=== PATIENT | male | born 1950 | race Caucasian/White ===

== ENCOUNTER 2016-11-03 20:32 | Emergency (ER) | payer OTHER, MEDICARE ==
[~2016-11-03] VITALS: Ht 188 cm; Wt 115.0 kg
[~2016-11-03 20:32] MED LIST: AMMO12CR10 TOP; ASPI81TA17 PO; B-122000 PO; CALC500T42 PO; DEPA500T3 PO; DIOV80TA4 PO; FLEX10TA PO; GABA600T PO; GLIP5TAB8 PO; IMIQ5CRE9; LEVA750T PO; MIRT15TA2 PO; MOBI7.5T PO; NIAC500T5 PO; REST0.05 EACH EYE; REST0.05 OU; SIMV40TA PO; TAB-TAB PO; TOPA200T4 PO; ULTR50TA PO
[2016-11-03 20:35] VITALS: BP 138/87; PULSE 112; RESP 16; TEMP 97.7; O2SAT 97
[2016-11-03] MEDS ORDERED: SIMV80TA PO (21:02)
[2016-11-03] MEDS ORDERED: LISI-519 PO (21:02)
[2016-11-03] MEDS ORDERED: TRAZ100T4 PO (21:02)
[2016-11-03] MEDS ORDERED: MELO7.5T4 PO (21:02)
[2016-11-03] MEDS ORDERED: GABA600T PO (21:02)
[2016-11-03] MEDS ORDERED: DIVA500T PO (21:02)
[2016-11-03] MEDS ORDERED: ASPI81CH7 CHEW (21:02)
[2016-11-03] MEDS ORDERED: ASCO10003 PO (21:02)
[2016-11-03] MEDS ORDERED: FOLI5CAP PO (21:02)
[2016-11-03] MEDS ORDERED: REST0.05 EACH EYE (21:02)
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
[2016-11-03 22:17] VITALS: BP 142/88
[2017-03-11] MEDS ORDERED: TRAZ50TA12 PO (11:48)
[2017-03-11] MEDS ORDERED: ASCO500T PO (11:48)
== END 2016-11-03 22:18 | disposition home or self-care (01) ==
LOC: PHED 20:32
DX: S00.81XA Abrasion of other part of head, initial encounter (principal); S80.812A Abrasion, left lower leg, initial encounter; S80.11XA Contusion of right lower leg, initial encounter; S40.022A Contusion of left upper arm, initial encounter; S40.021A Contusion of right upper arm, initial encounter; I10 Essential (primary) hypertension; E78.00 Pure hypercholesterolemia, unspecified; Z87.39 Personal history of other diseases of the musculoskeletal system and connective tissue; Z87.09 Personal history of other diseases of the respiratory system; Z87.19 Personal history of other diseases of the digestive system; Z86.69 Personal history of other diseases of the nervous system and sense organs; Z86.59 Personal history of other mental and behavioral disorders; V47.0XXA Car driver injured in collision with fixed or stationary object in nontraffic accident, initial encounter; Y92.410 Unspecified street and highway as the place of occurrence of the external cause
CPT/HCPCS: 71020; 73590; 99284

== ENCOUNTER 2017-01-23 05:48 | Inpatient (IN) | payer MEDICARE, OTHER ==
[~2017-01-23] VITALS: Ht 185.4 cm; Wt 105.1 kg
[2017-01-23] VITALS (11 sets, daily range): BP systolic 107–141; BP diastolic 60–79; PULSE 84–137; RESP 20–24; TEMP 95.5–100; O2SAT 85–97
[~2017-01-23 05:48] MED LIST changes: -AMMO12CR10 TOP; +ASCO10003 PO; +ASPI81CH7 CHEW; -ASPI81TA17 PO; -B-122000 PO; -CALC500T42 PO; -DEPA500T3 PO; -DIOV80TA4 PO; +DIVA500T PO; -FLEX10TA PO; +FOLI5CAP PO; -GLIP5TAB8 PO; -IMIQ5CRE9; -LEVA750T PO; +LISI-519 PO; +MELO7.5T4 PO; -MIRT15TA2 PO; -MOBI7.5T PO; -NIAC500T5 PO; -REST0.05 OU; -SIMV40TA PO; +SIMV80TA PO; -TAB-TAB PO; -TOPA200T4 PO; +TRAZ100T4 PO; -ULTR50TA PO
[2017-01-23] MEDS ORDERED: SODIUM CHLORIDE 0.9% FLUSH 10 ML FLUSH IVF PRN ×2 (06:15)
[2017-01-23] MEDS ORDERED: methylPREDNISolone SOD SUCC 125 MG/2 ML VIAL IVP ONE (06:15)
[2017-01-23] MEDS: RESP: ALBUTEROL 2.5 MG/IPRATROPIUM 0.5 MG NEB (SCH) INH ×5 (06:21→20:11)
--- NOTE | 2017-01-23 06:31 | PD ---
HPI Chief Complaint: Respiratory Symptoms Time Seen by Provider: 06:12 Travel History International Travel<30 days: No Contact w/Intl Traveler<30days: No Traveled to known affect area: No History of Present Illness HPI The patient is a 66-year-old female who has a history of COPD but not congestive heart failure who complains of a cough and shortness of breath since yesterday. He had a fever of 100.4 at home yesterday. He is a patient of Dr. Lance Vidal but he does not have a shoe repairman. He does not have a home oxygen and he does not have a nebulizer. It is been almost a year since he was on steroids. He gave up smoking many years ago. He is retired [employer]. PFSH Past Medical History Arthritis: Yes Asthma: No Autoimmune Disease: No Anxiety: Yes Depression: Yes Heart Rhythm Problems: No Cancer: Yes High Cholesterol: Yes Chest Pain: No Congestive Heart Failure: No COPD: Yes Diabetes: Yes Gastrointestinal Disorders: No GERD: Yes Hiatal Hernia: No Hypertension: Yes Immune Disorder: No Implanted Vascular Access Dvce: No Kidney Stones: No Musculoskeletal: Yes Neurologic: Yes Psychiatric: Yes Reproductive: No Respiratory: Yes Radiation Therapy: Yes (30 on right ear - 3 years ago) Renal Failure: No Thyroid Disease: No Ulcer: Yes Past Surgical History Abdominal Surgery: Yes (apendectomy) Eye Surgery: Yes (cataract surgery) Oral Surgery: Yes (adenoidectomy, tonsilectomy) Other Surgery: Yes Social History Alcohol Use: Yes Tobacco Use: No Substance Use: No Allergies-Medications (Allergen,Severity, Reaction): Coded Allergies: Diclofenac (Verified Allergy, Severe, 01/23/17) Latex (Verified Allergy, Severe, 01/23/17) Tetanus Toxoid (Verified Allergy, Severe, 01/23/17) Reported Meds & Prescriptions Reported Meds & Active Scripts Active Reported Lisinopril 5 Mg Tab 5 Mg PO DAILY Trazodone (Trazodone HCl) 100 Mg Tab 100 Mg PO HS Simvastatin 80 Mg Tab 80 Mg PO DAILY Restasis Opth Drops (Cyclosporine Opth Drops) 0.05% Emul 1 Drop EACH EYE BID Meloxicam 7.5 Mg Tab 7.5 Mg PO DAILY Gabapentin 600 Mg Tab 600 Mg PO TID Folic Acid 5 Mg Cap 5 Mg PO DAILY Divalproex DR (Divalproex Sodium) 500 Mg Tabdr 500 Mg PO BID Aspirin Children's (Aspirin) 81 Mg Chew 81 Mg CHEW DAILY Ascorbic Acid 1,000 Mg Tab 1,000 Mg PO DAILY Review of Systems ROS Limitations: Poor Historian Except as stated in HPI: all other systems reviewed are Neg Physical Exam Exam Limitations: Poor Historian Narrative GENERAL: The patient is slightly lethargic and is slow to answer questions. His vital signs show temperature 99.1 with heart rate of 137, respirations 24 and oximetry 85% on room air. His blood pressure is 123/75. SKIN: Focused skin assessment warm/dry. No skin rashes noted. HEAD: Atraumatic. Normocephalic. EYES: Pupils equal and round. No scleral icterus. No injection or drainage. ENT: No nasal bleeding or discharge. Mucous membranes pink and moist. NECK: Trachea midline. No JVD. CARDIOVASCULAR: Sinus tachycardia rhythm. No murmur appreciated. RESPIRATORY: No accessory muscle use. Scattered rhonchi are heard bilaterally along with some wheezes bilaterally there is poor respiratory effort. Breath sounds equal bilaterally. GASTROINTESTINAL: Abdomen soft, non-tender, nondistended. Hepatic and splenic margins not palpable. MUSCULOSKELETAL: No obvious deformities. No clubbing. No cyanosis. No edema. NEUROLOGICAL: Awake and alert. No obvious cranial nerve deficits. Motor grossly within normal limits. Normal speech. PSYCHIATRIC: The patient is lethargic, possibly due to his hypoxemia; insight and judgment fair. Data Data Last Documented VS Vital Signs Date Time Temp Pulse Resp B/P Pulse Ox O2 Delivery O2 Flow Rate FiO2 01/23/17 06:46 96 Nasal Cannula 6 01/23/17 06:00 99.1 137 24 123/75 Orders Complete Blood Count With Diff (01/23/17 06:15) Comprehensive Metabolic Panel (01/23/17 06:15) B-Type Natriuretic Peptide (01/23/17 06:15) Magnesium (Mg) (01/23/17 06:15) Troponin I (01/23/17 06:15) Urinalysis - C+S If Indicated (01/23/17 06:15) Influenzae A/B Antigen (01/23/17 06:15) Iv Access Insert/Monitor (01/23/17 06:15) Ecg Monitoring (01/23/17 06:15) Oximetry (01/23/17 06:15) Oxygen Administration (4/13/17 06:15) Chest, Pa & Lat (01/23/17 06:15) Sodium Chloride 0.9% Flush (Ns Flush) (01/23/17 06:15) Methylprednisolone So Succ Inj (Solumedr (01/23/17 06:15) Albuterol-Ipratropium Neb (Duoneb Neb) (01/23/17 06:15) Arterial Blood Gas (Abg) (01/23/17 06:15) Sodium Chloride 0.9% Flush (Ns Flush) (01/23/17 06:15) Electrocardiogram (01/23/17 06:31) MDM Medical Decision Making Medical Screen Exam Complete: Yes Emergency Medical Condition: Yes Medical Record Reviewed: Yes Differential Diagnosis COPD with acute exacerbation, pneumonia, bronchitis, hypoxemia, electrolyte disorder, hypo-/hyperglycemia Narrative Course It is now 0700 and the patient is transferred to Dr. Altman. Isaiah Worrell MD Jan 23, 2017 06:31
[2017-01-23 06:32] LABS: AUTOMATED NEUTROPHIL # 2.8 TH/MM3 (1.8-7.7); BASOPHIL % 1.3 % (0.0-2.0); EOSINOPHIL % 0.1 % (0.0-4.0); HEMATOCRIT 45.1 % (39.0-51.0); LYMPH % 10.1 % (9.0-44.0); LYMPHOCYTE # 0.3 TH/MM3 (1.0-4.8); MEAN CELL VOLUME 99.1 FL (80.0-100.0); MEAN CORPUSCULAR HEMOGLOBIN 33.1 PG (27.0-34.0); MEAN CORPUSCULAR HGB CONC 33.4 % (32.0-36.0); MONO % 7.3 % (0.0-8.0); NEUT % 81.2 % (16.0-70.0); PLATELET COUNT 88 TH/MM3 (150-450); RED BLOOD COUNT 4.55 MIL/MM3 (4.50-5.90); RED CELL DISTRIBUTION WIDTH 13.6 % (11.6-17.2); WHITE BLOOD COUNT 3.3 TH/MM3 (4.0-11.0)
[2017-01-23 06:35] LABS: HEMO FLAGS AUTO DIFF
[2017-01-23 06:40] LABS: CHLORIDE 109 MEQ/L (98-107); SODIUM (NA) 142 MEQ/L (136-145)
[2017-01-23 06:44] LABS: ANION GAP 11 MEQ/L (5-15); BICARBONATE 22.4 MEQ/L (21.0-32.0); BLOOD UREA NITROGEN 23 MG/DL (7-18); MAGNESIUM 1.8 MG/DL (1.5-2.5)
[2017-01-23 06:47] LABS: ALT (GPT) 26 U/L (12-78); AST (GOT) 45 U/L (15-37); GLOMERULAR FILTRATION RATE 51 ML/MIN (>89)
[2017-01-23 06:48] LABS: TOTAL BILIRUBIN ADULT 0.5 MG/DL (0.2-1.0)
[2017-01-23 06:50] LABS: ALKALINE PHOSPHATASE 85 U/L (45-117); PLATELET ESTIMATE SMEAR LOW (NORMAL); PLATELET MORPHOLOGY NORMAL (NORMAL); SCAN/DIFF AUTO DIFF CONFIRMED
--- NOTE | 2017-01-23 07:11 | RADHPO ---
EXAM DATE/TIME: 01/23/2017 06:25 [facility] COMPARISON: CHEST PA & LAT, November 03, 2016, 21:14. INDICATIONS : Short of breath, chest congestion, cough. MEDICAL HISTORY : Hypertension. Arthritis. Hypercholesterolemia. Gastroesophageal reflux disease. Hyperlipidemia. COPD.Dyspnea. Ulcer. Herniated disc. Diabetes. Skin cancer. SURGICAL HISTORY : Tonsillectomy.Appendectomy. Bilateral cataract extraction. Bilateral knee surgery. ENCOUNTER: Initial ACUITY: 3 days PAIN SCORE: 0/10 LOCATION: Bilateral chest FINDINGS: There is a wedge compression deformity at the L1 level identified of moderate severity. There is card iomegaly. Patchy airspace disease at the bases identified bilaterally. There are no effusions. CONCLUSION: L1 compression deformity identified. Basilar airspace disease is noted. Williams Vital MD on January 23, 2017 at 7:08 Board Certified Radiologist. This report was verified electronically.
[2017-01-23 07:22] LABS: BLOOD GAS BASE EXCESS -0.5 mmol/L (-2-2); BLOOD GAS CARBOXYHEMOGLOBIN 1.6 % (0-4); BLOOD GAS HCO3 23 mmol/L (22-26); BLOOD GAS METHEMOGLOBIN 1.1 % (0-2); BLOOD GAS O2 HGB SATURATION 82 % (90-100); BLOOD GAS OXYGEN CONTENT 17.2 Vol % (12.0-20.0); BLOOD GAS PCO2 32 mmHG (38-42); BLOOD GAS PO2 49 mmHG (61-120); BLOOD GAS TOTAL HGB 14.9 G/DL (12.0-16.0); CRITICAL VALUE YES; DRAW SITE RT RADIAL; FIO2 21 %; NUMBER OF ARTERIAL PUNCTURES 1; OXYGEN DEVICE ROOM AIR; STAT YES; TEMP CORR TO 98.6; ULNAR PULSE PRESENT
[2017-01-23] MEDS ORDERED: cefTRIAXone INJ 2,000 MG in SODIUM CHLORIDE 0.9% INJ 100 ML IV STA (07:39)
[2017-01-23] MEDS ORDERED: AZITHROMYCIN INJ 500 MG in SODIUM CHLOR 0.9% 250 ML INJ 250 ML IV STA (07:39)
[2017-01-23] MEDS ORDERED: DEXTROSE 50% IN WATER 50 ML VIAL(D50) IV PUSH PRN (08:15)
[2017-01-23] MEDS ORDERED: SODIUM CHLORIDE 0.9% FLUSH 10 ML FLUSH IV FLUSH PRN (08:15)
[2017-01-23] MEDS ORDERED: RESP: ALBUTEROL 2.5 MG/IPRATROPIUM 0.5 MG NEB (PRN) INH (08:15)
[2017-01-23] MEDS ORDERED: GLUCAGON 1 MG/ML VIAL OTHER PRN (08:15)
--- NOTE | 2017-01-23 08:24 | PD ---
Physical Exam Date Seen by Provider: Jan 23, 2017 Time Seen by Provider: 07:00 Narrative Patient seen and evaluated by Dr. Worrell, signed out to me at [address] Worrell's note for further details. Patient has had nebulizers in the ER with some improvement saturation although he continues to be in the low 90% range for oxygenation on 4 L nasal cannula. Chest x-ray shows a lateral interstitial infiltrates concerning for underlying atypical pneumonia. BNP is negative. Sepsis protocol was initiated, lactate is elevated, and IV antibiotics were initiated after cultures have been drawn. At this point, case was discussed with Dr. Carlos for admission for further treatment. Laboratory Tests Test 01/23/17 01/23/17 01/23/17 06:22 07:15 07:20 White Blood Count 3.3 TH/MM3 (4.0-11.0) Platelet Count 88 TH/MM3 (150-450) Neutrophils (%) (Auto) 81.2 % (16.0-70.0) Lymphocytes # (Auto) 0.3 TH/MM3 (1.0-4.8) Platelet Estimate LOW (NORMAL) Chloride Level 109 MEQ/L (98-107) Blood Urea Nitrogen 23 MG/DL (7-18) Creatinine 1.40 MG/DL (0.60-1.30) Estimat Glomerular Filtration 51 ML/MIN (>89) Rate Random Glucose 113 MG/DL (74-106) Aspartate Amino Transf 45 U/L (15-37) (AST/SGOT) Troponin I LESS THAN 0.02 NG/ML (0.02-0.05) Albumin 3.2 GM/DL (3.4-5.0) Blood Gas Oxygen Saturation 82 % (90-100) Arterial Blood pH 7.47 (7.380-7.420) Arterial Blood Partial 32 mmHG (38-42) Pressure CO2 Arterial Blood Partial 49 mmHG Pressure O2 (61-120) Lactic Acid Level 2.8 mmol/L (0.4-2.0) Last 24 hours Impressions Chest X-Ray 01/23/17 0615 Signed Impressions: Service Date/Time: January 06:25 - CONCLUSION: L1 compression deformity identified. Basilar airspace disease is noted. Williams Vital MD Data Data Last Documented VS Vital Signs Date Time Temp Pulse Resp B/P Pulse Ox O2 Delivery O2 Flow Rate FiO2 01/23/17 07:07 100.0 135 22 141/63 94 Room Air 01/23/17 06:46 6 Orders Complete Blood Count With Diff (01/23/17 06:15) Comprehensive Metabolic Panel (01/23/17 06:15) B-Type Natriuretic Peptide (01/23/17 06:15) Magnesium (Mg) (01/23/17 06:15) Troponin I (01/23/17 06:15) Urinalysis - C+S If Indicated (01/23/17 06:15) Influenzae A/B Antigen (01/23/17 06:15) Iv Access Insert/Monitor (01/23/17 06:15) Ecg Monitoring (01/23/17 06:15) Oximetry (01/23/17 06:15) Oxygen Administration (01/23/17 06:15) Chest, Pa & Lat (01/23/17 06:15) Sodium Chloride 0.9% Flush (Ns Flush) (01/23/17 06:15) Methylprednisolone So Succ Inj (Solumedr (01/23/17 06:15) Albuterol-Ipratropium Neb (Duoneb Neb) (01/23/17 06:15) Arterial Blood Gas (Abg) (01/23/17 06:15) Sodium Chloride 0.9% Flush (Ns Flush) (01/23/17 06:15) Electrocardiogram (01/23/17 06:31) Lactic Acid Sepsis Protocol (01/23/17 07:08) Blood Culture (01/23/17 07:08) Ceftriaxone Inj (Rocephin Inj) (01/23/17 07:39) Azithromycin Inj (Zithromax Inj) (01/23/17 07:39) Sodium Chloride 0.9% Flush (Ns Flush) (01/23/17 08:15) Sodium Chloride 0.9% Flush (Ns Flush) (01/23/17 09:00) Ceftriaxone Inj (Rocephin Inj) (01/24/17 08:15) Azithromycin Inj (Zithromax Inj) (01/24/17 08:15) Albuterol-Ipratropium Neb (Duoneb Neb) (01/23/17 12:00) Albuterol-Ipratropium Neb (Duoneb Neb) (01/23/17 08:15) Methylprednisolone So Succ Inj (Solumedr (01/23/17 12:00) Admit To Inpatient (01/23/17 ) Vital Signs (Adult) Q4H (01/23/17 08:01) Activity Oob With Assistance PRN (01/23/17 08:01) Notify Parameters (01/23/17 08:01) Intake + Output Q8H (01/23/17 08:01) ^ Smoking Cessation Counseling (01/23/17 08:01) Diet Heart Healthy (01/23/17 Breakfast) Diet 1800 Ada Cons Carb (01/23/17 Breakfast) Complete Blood Count With Diff (01/24/17 06:00) Basic Metabolic Panel (Bmp) (01/24/17 06:00) Sputum Culture And Gram Stain (01/23/17 08:01) Legionella Urinary Antigen (01/23/17 08:01) Pneumococcal Urinary Antigen (01/23/17 08:01) Influenzae A/B Antigen (01/23/17 08:01) Resp Oxygen Henry C Titrat 1-4 L (01/23/17 ) Resp Bipap / Cpap Non Invas Vt (01/23/17 ) Resp Incentive Spirometry (01/23/17 ) Scd Bilateral/Knee High ABILIO.BID (01/23/17 08:01) Inpatient Certification (01/23/17 ) Bedside Glucose ABILIO.AC&HS (01/23/17 08:01) Blood Glucose Goal (Criteria) (01/23/17 08:01) Hypoglycemia 51 - 69 Mg/Dl (01/23/17 08:01) Hypoglycemia 50 Mg/Dl Or < (01/23/17 08:01) Notify Dr: Other (01/23/17 08:01) Dextrose 50% In Beatriz (Vial) Inj (D50w (Vi (01/23/17 08:15) Glucagon Inj (Glucagon Inj) (01/23/17 08:15) Insulin Aspart Supplemtl Scale (Novolog (01/23/17 11:00) Admit Order (Ed Use Only) (01/23/17 08:20) Labs Laboratory Tests Test 01/23/17 01/23/17 01/23/17 01/23/17 06:15 06:22 07:15 07:20 B-Type Natriuretic Peptide 53 PG/ML White Blood Count 3.3 TH/MM3 Red Blood Count 4.55 MIL/MM3 Hemoglobin 15.1 GM/DL Hematocrit 45.1 % Mean Corpuscular Volume 99.1 FL Mean Corpuscular Hemoglobin 33.1 PG Mean Corpuscular Hemoglobin 33.4 % Concent Red Cell Distribution Width 13.6 % Platelet Count 88 TH/MM3 Mean Platelet Volume 9.4 FL Neutrophils (%) (Auto) 81.2 % Lymphocytes (%) (Auto) 10.1 % Monocytes (%) (Auto) 7.3 % Eosinophils (%) (Auto) 0.1 % Basophils (%) (Auto) 1.3 % Neutrophils # (Auto) 2.8 TH/MM3 Lymphocytes # (Auto) 0.3 TH/MM3 Monocytes # (Auto) 0.2 TH/MM3 Eosinophils # (Auto) 0.0 TH/MM3 Basophils # (Auto) 0.0 TH/MM3 CBC Comment AUTO DIFF Differential Comment AUTO DIFF CONFIRMED Platelet Estimate LOW Platelet Morphology Comment NORMAL Sodium Level 142 MEQ/L Potassium Level 5.0 MEQ/L Chloride Level 109 MEQ/L Carbon Dioxide Level 22.4 MEQ/L Anion Gap 11 MEQ/L Blood Urea Nitrogen 23 MG/DL Creatinine 1.40 MG/DL Estimat Glomerular Filtration 51 ML/MIN Rate Random Glucose 113 MG/DL Calcium Level 8.7 MG/DL Magnesium Level 1.8 MG/DL Total Bilirubin 0.5 MG/DL Aspartate Amino Transf 45 U/L (AST/SGOT) Alanine Aminotransferase 26 U/L (ALT/SGPT) Alkaline Phosphatase 85 U/L Troponin I LESS THAN 0.02 NG/ML Total Protein 7.1 GM/DL Albumin 3.2 GM/DL Blood Gas Puncture Site RT RADIAL Blood Gas Patient Temperature 98.6 Blood Gas HCO3 23 mmol/L Blood Gas Base Excess -0.5 mmol/L Blood Gas Oxygen Saturation 82 % Arterial Blood pH 7.47 Arterial Blood Partial 32 mmHG Pressure CO2 Arterial Blood Partial 49 mmHG Pressure O2 Arterial Blood Oxygen Content 17.2 Vol % Arterial Blood 1.6 % Carboxyhemoglobin Arterial Blood Methemoglobin 1.1 % Blood Gas Hemoglobin 14.9 G/DL Oxygen Delivery Device ROOM AIR Blood Gas Inspired Oxygen 21 % Lactic Acid Level 2.8 mmol/L [facility] Medical Record Reviewed: Yes Supervised Visit with YOUSIF: No Diagnosis Primary Impression: Severe sepsis Additional Impression: Pneumonia Admitting Information Admitting Physician Requests: it Luther Aviles MD Jan 23, 2017 08:24
[2017-01-23] MEDS: cefTRIAXone INJ 1,000 MG in SODIUM CHLORIDE 0.9% INJ 100 ML IV SCH (08:44)
[2017-01-23] MEDS: SODIUM CHLORIDE 0.9% FLUSH 10 ML FLUSH IV FLUSH SCH ×2 (08:47→21:00)
[2017-01-23 09:30] LABS: LACTIC ACID GHOST NOT REPORTABLE
[2017-01-23 10:52] LABS: BLOOD, URINE NEG (NEG); GLUCOSE,URINE NEG (NEG); KETONE, URINE TRACE mg/dL (NEG); METHOD OF COLLECTION CLEAN CATCH; NITRITE,URINE NEG (NEG)
[2017-01-23 10:53] LABS: URINE COLOR YELLOW (YELLW/STRAW)
[2017-01-23 10:56] LABS: CULTURE IF INDICATED CULT NOT INDICATED
[2017-01-23 10:57] LABS: COMMENT (UR) CULT NOT INDICATED; SQUAMOUS EPITHELIAL CELL URINE 0-5 /hpf (0-5)
[2017-01-23] MEDS: INSULIN ASPART SUPPLEMENTAL SCALE SQ SCH ×3 (12:08→22:21)
[2017-01-23] MEDS: methylPREDNISolone SOD SUCC 40 MG/1 ML VIAL IV SCH ×3 (12:08→23:52)
[2017-01-23] MEDS ORDERED: CALCIUM CARBONATE 500 MG CHEWABLE TAB CHEW PRN (14:45)
[2017-01-23] MEDS ORDERED: DOCUSATE SODIUM 100 MG CAP PO PRN (14:45)
[2017-01-23] MEDS ORDERED: ACETAMINOPHEN 325 MG TAB PO PRN (14:45)
[2017-01-23] MEDS ORDERED: guaiFENesin/CODEINE SYRUP 200 MG/20 MG/10 ML CUP PO PRN (14:45)
[2017-01-23] MEDS ORDERED: ONDANSETRON HCL 4 MG/2 ML VIAL IV PRN (14:45)
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
[2017-01-23] MEDS: SODIUM CHLOR 0.9% 1000 ML INJ 1,000 ML IV SCH (15:38)
[2017-01-23] MEDS: guaiFENesin E.R. 600 MG TAB PO SCH ×2 (15:38→22:20)
--- NOTE | 2017-01-23 18:02 | MB ---
cc: KATRIN WILKES DATE OF CONSULTATION 01/23/17 REASON FOR CONSULTATION Pneumonia, question COPD. HISTORY OF PRESENT ILLNESS Mr. Warner is a 66 year old male with questionable history of COPD. He was placed on a bronchodilator years ago. However has not been on any for a decade or more now. The patient is disabled with difficulty ambulating because of back and lower extremity pain. The patient does have a compression fracture L1. The patient has not been seen by pulmonology in the past. His oxygen saturation was noted to be low upon presentation, placed on oxygen therapy, pO2 by arterial blood gas today is at 49. The patient did smoke up until 1995. He has an occasional cough, no expectoration. No fever or chills. No hemoptysis. No TB or industrial exposure. PAST MEDICAL HISTORY 1. Degenerative disk disease, 2. Hypertension, 3. Hyperlipidemia 4. Question COPD as mentioned above 5. Mood disorder namely anxiety, depression 6. Hypertension. 7. He did have radiation therapy to the right ear for some sort of malignancy. ALLERGIES LATEX TETANUS INJECTION DICLOFENAC MEDICATIONS At home, 1. Lisinopril. 2. Trazodone. 3. Simvastatin 4. Restasis. 5. Meloxicam. 6. Gabapentin. 7. Folic acid 8. Divalproex 9. Aspirin. 10. Ascorbic acid FAMILY HISTORY Noncontributory. REVIEW OF SYSTEMS 12-point review of systems as per HPI and past history otherwise negative PHYSICAL EXAMINATION VITAL SIGNS: Temperature 97, pulse 90, respirations 20, blood pressure 106/70, O2 sat 93% on 6 liters oxygen nasal cannula. HEENT: Exam unremarkable. Eyes without icterus. NECK: No adenopathy or thyroid enlargement. Central trachea. CHEST: Scattered rhonchi bilaterally. CARDIAC: PMI distant. S1-S2 audible. No murmur or rub. ABDOMEN: Lax, bowel sounds audible. EXTREMITIES: No clubbing, cyanosis or edema. SKIN: Normal. No lymphadenopathy. EXTREMITIES: No clubbing, cyanosis, 2+ edema. LABORATORY DATA Sodium 142, potassium 5.0, BUN 23, creatinine 1.4. White count 3.3, hemoglobin 15, hematocrit 45, platelets 88,000. IMAGING STUDIES Chest x-ray bibasilar atelectatic change or infiltrate noted. IMPRESSION 1. COPD, exacerbation. 2. Pneumonia 3. Hypoxic respiratory failure. PLAN The patient will be maintained on oxygen therapy. Bronchodilator therapy has been initiated and appropriately so. We will obtain pulmonary function as well as an echocardiogram to assess left ventricular performance given the patient's chronic lower extremity edema. Intravenous steroids have been given. We will obtain a CT angiogram to assess the possibility of pulmonary embolization, especially given the patient's lack of mobility. We will follow her course ____, oxygen therapy will be given as needed to maintain adequate oxygenation. The patient's prognosis is guarded. I do thank you for asking to partake in Mr. Whaley's care. Katrin Wilkes MD WWW/ /3:06 PM /5:42 PM
[2017-01-23] MEDS: GABAPENTIN 300 MG CAP PO SCH (18:07)
[2017-01-23] MEDS ORDERED: IOHEXOL 350 MG/ML 10 ML VIAL (for RAD DIAG) IV ONE (20:25)
--- NOTE | 2017-01-23 20:56 | RADHPO ---
EXAM DATE/TIME: 01/23/2017 19:49 [facility] COMPARISON: No previous studies available for comparison. INDICATIONS : Shortness of breath. Evaluate for embolism. IV CONTRAST: 75 cc Omnipaque 350 (iohexol) IV RADIATION DOSE: 20.58 CTDIvol (mGy) MEDICAL HISTORY : Chronic obstructive pulmonary disease. Hypertension. Diabetes mellitus type 2. SURGICAL HISTORY : None. ENCOUNTER: Initial ACUITY: 2 days PAIN SCALE: 3/10 LOCATION: chest TECHNIQUE: Volumetric scanning of the chest was performed using a pulmonary embolism protocol MIP images were re constructed. Using automated exposure control and adjustment of the mA and/or kV according to patien t size, radiation dose was kept as low as reasonably achievable to obtain optimal diagnostic quality images. FINDINGS: PULMONARY ARTERIES: No filling defects are seen in the pulmonary arteries through the segmental level. LUNGS: Mild bibasilar atelectasis, right worse than left with elevated right diaphragm. PLEURAE: There is no pleural thickening or pleural effusion. MEDIASTINUM: There is good visualization of the great vessels of the middle mediastinum. No evidence of mediastin al or hilar adenopathy/mass. Low density right thyroid mass MUSCULOSKELETAL: Within normal limits for patient age. MISCELLANEOUS: Hepatic cysts. Gallstones. CONCLUSION: Mild basilar parenchymal lung changes. No evidence of pulmonary embolism. Evan Marion MD on January 23, 2017 at 20:49 Board Certified Radiologist. This report was verified electronically.
[2017-01-23] MEDS ORDERED: traZODone HCL 100 MG TAB PO SCH (21:00)
[2017-01-23] MEDS ORDERED: RESTASIS EACH EYE SCH (21:00)
[2017-01-23] MEDS: DIVALPROEX DR 500 MG TABEC PO SCH (22:20)
[2017-01-24] VITALS: BP 120/72; PULSE 94; RESP 20; TEMP 96; O2SAT 94
[2017-01-24] MEDS: SODIUM CHLOR 0.9% 1000 ML INJ 1,000 ML IV SCH (05:12)
[2017-01-24] MEDS: methylPREDNISolone SOD SUCC 40 MG/1 ML VIAL IV SCH ×2 (05:12→13:05)
[2017-01-24] MEDS: INSULIN ASPART SUPPLEMENTAL SCALE SQ SCH ×2 (06:28→11:00)
--- NOTE | 2017-01-24 06:47 | EKG ---
Date Performed: 01/23/2017 Time Performed: 06:32:36 PTAGE: 66 years EKG: Sinus tachycardia. Left axis deviation RBBB with left anterior fascicular block Left ventri cular hypertrophy Lateral ST-T changes are probably due to ventricular hypertrophy Abnormal ECG Luis Antonio red to PREVIOUS TRACING , the sinus rate has increased. PREVIOUS TRACIN02/04/2016 19.35 DOCTOR: Chago Dunlap Interpretating Date/Time 01/24/2017 06:45:45
[2017-01-24 06:53] LABS: AUTOMATED NEUTROPHIL # 10.2 TH/MM3 (1.8-7.7); EOSINOPHIL % 0.1 % (0.0-4.0); HEMATOCRIT 38.9 % (39.0-51.0); LYMPH % 5.2 % (9.0-44.0); LYMPHOCYTE # 0.6 TH/MM3 (1.0-4.8); MEAN CELL VOLUME 100.3 FL (80.0-100.0); MEAN CORPUSCULAR HEMOGLOBIN 34.7 PG (27.0-34.0); MEAN CORPUSCULAR HGB CONC 34.6 % (32.0-36.0); MONO % 10.4 % (0.0-8.0); NEUT % 84.3 % (16.0-70.0); PLATELET COUNT 70 TH/MM3 (150-450); RED BLOOD COUNT 3.88 MIL/MM3 (4.50-5.90); RED CELL DISTRIBUTION WIDTH 13.9 % (11.6-17.2); WHITE BLOOD COUNT 12.1 TH/MM3 (4.0-11.0)
[2017-01-24 07:10] LABS: HEMO FLAGS AUTO DIFF
[2017-01-24 07:35] LABS: BICARBONATE 24.3 MEQ/L (21.0-32.0); POTASSIUM 4.1 MEQ/L (3.5-5.1)
[2017-01-24] MEDS: RESP: ALBUTEROL 2.5 MG/IPRATROPIUM 0.5 MG NEB (SCH) INH ×2 (07:43→11:23)
[2017-01-24 07:44] VITALS: O2SAT 92
[2017-01-24 07:51] VITALS: BP 136/71; PULSE 80; RESP 20; TEMP 96.8; O2SAT 94
[2017-01-24 07:51] LABS: SCAN/DIFF AUTO DIFF CONFIRMED
[2017-01-24] MEDS ORDERED: AZITHROMYCIN INJ 500 MG in SODIUM CHLOR 0.9% 250 ML INJ 250 ML IV SCH (08:00)
[2017-01-24] MEDS: GABAPENTIN 300 MG CAP PO SCH ×2 (08:25→13:05)
[2017-01-24] MEDS: DIVALPROEX DR 500 MG TABEC PO SCH (08:25)
[2017-01-24] MEDS: guaiFENesin E.R. 600 MG TAB PO SCH (08:25)
[2017-01-24] MEDS: cefTRIAXone INJ 1,000 MG in SODIUM CHLORIDE 0.9% INJ 100 ML IV SCH (08:26)
[2017-01-24] MEDS: SODIUM CHLORIDE 0.9% FLUSH 10 ML FLUSH IV FLUSH SCH (08:26)
[2017-01-24] MEDS ORDERED: FOLIC ACID 1 MG TAB PO SCH (09:00)
[2017-01-24] MEDS ORDERED: ASCORBIC ACID 500 MG TAB PO SCH (09:00)
[2017-01-24] MEDS ORDERED: ASPIRIN 81 MG CHEW TAB CHEW SCH (09:00)
--- NOTE | 2017-01-24 09:13 | HHI.PR ---
Subjective Remarks alert less sob Objective Vital Signs Date Time Temp Pulse Resp B/P Pulse Ox O2 Delivery O2 Flow Rate FiO2 01/24/17 07:51 96.8 80 20 136/71 94 01/24/17 07:44 92 Nasal Cannula 4.00 01/24/17 00:00 96.0 94 20 120/72 94 01/23/17 20:11 94 Nasal Cannula 4.00 01/23/17 20:00 96.6 84 20 107/68 97 01/23/17 16:00 95.5 91 20 117/79 92 01/23/17 15:38 92 Nasal Cannula 6.00 01/23/17 12:00 96.2 105 20 108/73 89 01/23/17 11:27 93 Nasal Cannula 6.00 01/23/17 09:30 96.9 113 21 118/71 89 01/23/17 09:23 115 22 107/60 93 Nasal Cannula 4 I/O 01/23/17 01/23/17 01/23/17 01/24/17 01/24/17 01/24/17 07:00 15:00 23:00 07:00 15:00 23:00 Intake Total 504 ml 1206 ml 676 ml Output Total 525 ml 975 ml 1000 ml Balance -21 ml 231 ml -324 ml Intake Oral 960 ml 60 ml IV Total 504 ml 246 ml 616 ml Output Urine Total 525 ml 975 ml 1000 ml # Voids 3 1 # Bowel Movements 0 0 0 Result Diagram: 01/24/17 0625 01/24/17 0625 Objective Remarks GENERAL: SKIN: Warm and dry. HEAD: Atraumatic. Normocephalic. EYES: Pupils equal and round. No scleral icterus. No injection or drainage. ENT: No nasal bleeding or discharge. Mucous membranes pink and moist. NECK: Trachea midline. No JVD. CARDIOVASCULAR: Regular rate and rhythm. RESPIRATORY: No accessory muscle use. Clear to auscultation. Breath sounds equal bilaterally. GASTROINTESTINAL: Abdomen soft, non-tender, nondistended. Hepatic and splenic margins not palpable. MUSCULOSKELETAL: Extremities without clubbing, cyanosis, or edema. No obvious deformities. NEUROLOGICAL: Awake and alert. No obvious cranial nerve deficits. Motor grossly within normal limits. Five out of 5 muscle strength in the arms and legs. Normal speech. PSYCHIATRIC: Appropriate mood and affect; insight and judgment normal. Assessment and Plan Assessment and Plan COPD ex. IMPROVED LE edema PLAN continue BD therapy check PFT , ECHO Katrin Wilkes MD Jan 24, 2017 09:12
--- NOTE | 2017-01-24 09:34 | EC ---
Study Study Date:01/24/2017 STUDY CONCLUSIONS SUMMARY - Procedure narrative: Transthoracic echocardiography. Image quality was poor. Scanning was performed from the parasternal, apical, and subcostal acoustic windows. - Left ventricle: The cavity size was normal. Wall thickness was normal. Systolic function was normal. The estimated ejection fraction was in the range of 55% to 60%. Although no diagnostic regional wall motion abnormality was identified, this possibility cannot be completely excluded on the basis of this study. - Tricuspid valve: Trace regurgitation. If LV function is below 40, please consider prescribing an ACEI or ARB or document rationale for non-use. PROCEDURE DATA STUDY STATUS: Elective. Procedure: Transthoracic echocardiography. Image quality was poor. Scanning was performed from the parasternal, apical, and subcostal acoustic windows. Study completion: The patient tolerated the procedure well. Transthoracic echocardiography. M-mode, complete 2D, complete spectral Doppler, and color Doppler. Patient status: Inpatient. CARDIAC ANATOMY LEFT VENTRICLE: The cavity size was normal. Wall thickness was normal. Systolic function was normal. The estimated ejection fraction was in the range of 55% to 60%. Although no diagnostic regional wall motion abnormality was identified, this possibility cannot be completely excluded on the basis of this study. AORTIC VALVE: Trileaflet; normal thickness leaflets. Doppler: Transvalvular velocity was within the normal range. There was no stenosis. No regurgitation. AORTA: Aortic root: The aortic root was normal in size. MITRAL VALVE: Structurally normal valve. Doppler: Transvalvular velocity was within the normal range. There was no evidence for stenosis. No regurgitation. LEFT ATRIUM: The atrium was normal in size. RIGHT VENTRICLE: The cavity size was normal. Wall thickness was normal. PULMONIC VALVE: Doppler: Transvalvular velocity was within the normal range. There was no evidence for stenosis. No regurgitation. TRICUSPID VALVE: Structurally normal valve. Doppler: Transvalvular velocity was within the normal range. Trace regurgitation. PULMONARY ARTERY: The main pulmonary artery was normal-sized. Systolic pressure was within the normal range. RIGHT ATRIUM: The atrium was normal in size. PERICARDIUM: There was no pericardial effusion. SYSTEMIC VEINS: Inferior vena cava: The vessel was normal in size. Prepared and signed by Bradley Fong [id number]
[2017-01-24] MEDS ORDERED: PRED20 PO (09:53)
[2017-01-24] MEDS ORDERED: ZITH250T PO (09:53)
[2017-01-24] MEDS ORDERED: CEFT500T3 PO (09:53)
--- NOTE | 2017-01-24 09:54 | HHI.DCPOC ---
Discharge Care Plan Diagnosis: (1) Pneumonia (2) Severe sepsis Your Health Problems Are: Difficulty with ADL Exercise Tolerance Goals to Promote Your Health * To prevent worsening of your condition and complications * To maintain your health at the optimal level Directions to Meet Your Goals Take your medications as prescribed Follow your dietary instruction Follow activity as directed Keep your appointments as scheduled Take your immunizations and boosters as scheduled If your symptoms worsen call your PCP, if no PCP go to Urgent Care Center or Emergency Room Smoking is Dangerous to Your Health. Avoid second hand smoke Call the 24-hour hour crisis hotline for domestic abuse at Amol Carlos MD Jan 24, 2017 09:54
--- NOTE | 2017-01-24 09:55 | HHI.FF ---
Face to Face Verification Diagnosis: (1) Severe sepsis (2) Pneumonia Physical Therapy Order: Evaluate and Treat, Improve ambulation, Strength and gait training Home Health Nursing Order: Medical education Signs/symptoms of disease process Diabetic education Oxygen administration education Nursing assessment with vital signs I have seen patient Wagner Whaley on 01/24/17. My clinical findings support the need for the requested home health care services because: Ltd mobility - disease progression Patient has SOB I certify that my clinical findings support that this patient is homebound because: Hx COPD- exertion dyspnea/weakness Amol Carlos MD Jan 24, 2017 09:55
[2017-01-24] MEDS ORDERED: OXYGENTANK NAS.CANULA (09:57)
[2017-01-24] MEDS ORDERED: WALKER WHEELS/F1 MIS (09:57)
--- NOTE | 2017-01-24 10:01 | HHI.PR ---
Subjective Remarks Follow-up sepsis and pneumonia. He is feeling much better oxygen down to 4 L. Ambulated with physical therapy who recommended a rolling walker. Discussed with pulmonary, patient can be discharged home if echocardiogram unremarkable. Discussed with RN Objective Vitals Vital Signs Date Time Temp Pulse Resp B/P Pulse Ox O2 Delivery O2 Flow Rate FiO2 01/24/17 07:51 96.8 80 20 136/71 94 01/24/17 07:44 92 Nasal Cannula 4.00 01/24/17 00:00 96.0 94 20 120/72 94 01/23/17 20:11 94 Nasal Cannula 4.00 01/23/17 20:00 96.6 84 20 107/68 97 01/23/17 16:00 95.5 91 20 117/79 92 01/23/17 15:38 92 Nasal Cannula 6.00 01/23/17 12:00 96.2 105 20 108/73 89 01/23/17 11:27 93 Nasal Cannula 6.00 I/O 01/23/17 01/23/17 01/23/17 01/24/17 01/24/17 01/24/17 07:00 15:00 23:00 07:00 15:00 23:00 Intake Total 504 ml 1206 ml 676 ml Output Total 525 ml 975 ml 1000 ml Balance -21 ml 231 ml -324 ml Intake Oral 960 ml 60 ml IV Total 504 ml 246 ml 616 ml Output Urine Total 525 ml 975 ml 1000 ml # Voids 3 1 # Bowel Movements 0 0 0 Result Diagram: 01/24/17 0625 01/24/1725 Imaging STUDY CONCLUSIONS of 2-D echo SUMMARY - Procedure narrative: Transthoracic echocardiography. Image quality was poor. Scanning was performed from the parasternal, apical, and subcostal acoustic windows. - Left ventricle: The cavity size was normal. Wall thickness was normal. Systolic function was normal. The estimated ejection fraction was in the range of 55% to 60%. Although no diagnostic regional wall motion abnormality was identified, this possibility cannot be completely excluded on the basis of this study. - Tricuspid valve: Trace regurgitation. Last Impressions Chest X-Ray 01/23/1715 Signed Impressions: Service Date/Time: January 06:25 - CONCLUSION: L1 compression deformity identified. Basilar airspace disease is noted. Williams Vital MD CT Angiography 01/23/17 0000 Signed Impressions: Service Date/Time: January 19:49 - CONCLUSION: Mild basilar parenchymal lung changes. No evidence of pulmonary embolism. Evan Marion MD Objective Remarks GENERAL: This is a well-nourished, well-developed patient, in no apparent distress. On 4 L nasal cannula SKIN: No rashes, ecchymoses or lesions. Cool and dry. HEAD: Atraumatic. Normocephalic. No temporal or scalp tenderness. EYES: Pupils equal round and reactive. Extraocular motions intact. No scleral icterus. No injection or drainage. ENT: Nose without bleeding, purulent drainage or septal hematoma. Throat without erythema, tonsillar hypertrophy or exudate. Uvula midline. Airway patent. NECK: Trachea midline. No JVD or lymphadenopathy. Supple, nontender, no meningeal signs. CARDIOVASCULAR: Regular rate and rhythm without murmurs, gallops, or rubs. RESPIRATORY: Decreased Breath sounds equal bilaterally. No wheezes, rales GASTROINTESTINAL: Abdomen soft, non-tender, nondistended. No guarding. MUSCULOSKELETAL: Extremities without clubbing, cyanosis with chronic pedal edema. No joint tenderness, effusion, or edema noted. No calf tenderness. Negative Homans sign bilaterally. NEUROLOGICAL: Awake and alert. Cranial nerves II through XII intact. Motor and sensory grossly within normal limits. Five out of 5 muscle strength in all muscle groups. Normal speech. Procedures none A/P Problem List: (1) Pneumonia ICD Code: J18.9 Status: Acute (2) Severe sepsis ICD Code: A41.9 Status: Acute Assessment and Plan This is a 66-year-old male who presents to the emergency department complaining of one-day history of nonproductive cough, shortness of breath with dyspnea on exertion and fever MAXIMUM TEMPERATURE 100.4. Has abnormal chest x-ray with basilar airspace disease and elevated lactic acid. Severe sepsis with leukopenia, tachypnea, tachycardia and elevated lactic acid over two. Resolved. Follow-up blood cultures negative to date Community-acquired pneumonia. Stable continue Rocephin and Zithromax obtain sputum culture, urinary pneumococcal and Legionella antigen. Negative for flu Hypoxic respiratory failure with history of COPD. ABG noted. Titrate oxygen down to keep saturation at least 92% currently 4 L. Improved continue nebulizations and steroids. Consulted pulmonary who cleared patient for discharge Bilateral lower extremity edema. BNP within normal limits. Echocardiogram unremarkable Leukopenia and worsening thrombo-cytopenia likely secondary to sepsis. Recommended outpatient follow-up with hematology with regards to thrombocytopenia Elevated d-dimer secondary to above Acute on chronic kidney disease stage III. Improved status post Gentle IV hydration. Avoid nephrotoxins hold lisinopril, meloxicam and check CK which was unremarkable Elevated AST on statin. Likely secondary to sepsis. We'll monitor Chronic medical conditions of anxiety, depression, right ear cancer, hyperlipidemia, diabetes mellitus, GERD and hypertension. Continue outpatient medications as appropriate. Monitor fingersticks with sliding scale coverage DVT prophylaxis with SCD and early ambulation. Avoid pharmacological prophylaxis secondary to thrombocytopenia Discharge Planning Discharge patient to home with home PT and visiting nurse. Patient improved significantly earlier than anticipated Condition on discharge: Improved Regular Diet as tolerated Ad Tsering activity no driving Rx written: Oxygen, Ceftin, Zithromax and prednisone. Rolling walker prescription also prepared Follow-up with primary care physician in one week. Follow-up with pulmonary in 1 week. Repeat chest x-ray in 6 weeks I spent over 35 minutes arranging outpatient care for this patient including discussion with physical therapy, RN and heel caser Amol Carlos MD Jan 24, 2017 10:01
[2017-01-24 11:40] VITALS: O2SAT 92
[2017-01-24 11:57] VITALS: BP 113/63; PULSE 80; RESP 20; TEMP 96.8; O2SAT 94
[2017-03-11] MEDS ORDERED: TRAZ50TA12 PO (11:48)
[2017-03-11] MEDS ORDERED: ASCO500T PO (11:48)
== END 2017-01-24 16:02 | disposition home health service (06) | DRG 871 ==
LOC: PHED 05:48 → PHEDA 08:21 → PH3B 09:17
PROVIDERS: ADMIT Internal Medicine; ATTEND Internal Medicine
DX: A41.9 Sepsis, unspecified organism (principal); J18.9 Pneumonia, unspecified organism; J96.91 Respiratory failure, unspecified with hypoxia; E11.22 Type 2 diabetes mellitus with diabetic chronic kidney disease; D69.59 Other secondary thrombocytopenia; J44.0 Chronic obstructive pulmonary disease with (acute) lower respiratory infection; N18.3 Chronic kidney disease, stage 3 (moderate); Z87.891 Personal history of nicotine dependence; M19.90 Unspecified osteoarthritis, unspecified site; F41.9 Anxiety disorder, unspecified; F32.9 Major depressive disorder, single episode, unspecified; E78.00 Pure hypercholesterolemia, unspecified; K21.9 Gastro-esophageal reflux disease without esophagitis; I12.9 Hypertensive chronic kidney disease with stage 1 through stage 4 chronic kidney disease, or unspecified chronic kidney disease; Z88.7 Allergy status to serum and vaccine; Z88.6 Allergy status to analgesic agent; Z91.040 Latex allergy status; Z85.828 Personal history of other malignant neoplasm of skin; Z92.3 Personal history of irradiation; R11.0 Nausea; E78.5 Hyperlipidemia, unspecified; R65.20 Severe sepsis without septic shock; D72.819 Decreased white blood cell count, unspecified
CPT/HCPCS: 36600; 71020; 71275; 80048; 80053; 81001; 82550; 82805; 82948; 83605; 83735; 83880; 84484; 85025; 87040; 87449; 87804; 93005; 93306; 94150; 94620; 94640; 94664; 96365; 96375; J0456; J0696; J1815; J2920; J2930; J7030; J7050; Q9967

== ENCOUNTER → 2017-01-31 | Outpatient (CLI) | payer MEDICARE, OTHER ==
[~2017-01-31] MED LIST changes: +ASCO500T PO; +CALC500C2 CHEW; +CEFT500T3 PO; +DIGECAP6 PO; +FLAX100015 PO; +HYDR-3583 PO; +LACTCAP8 PO; +PRED20 PO; +TRAZ50TA12 PO; +WALKER WHEELS/F1 MIS; +ZITH250T PO; +[UNRECOGNIZED DRUG - CODE] PO
[2017-01-31 10:46] LABS: BLOOD GAS BASE EXCESS 1.1 mmol/L (-2-2); BLOOD GAS CARBOXYHEMOGLOBIN 1.4 % (0-4); BLOOD GAS HCO3 25 mmol/L (22-26); BLOOD GAS O2 HGB SATURATION 94 % (90-100); BLOOD GAS OXYGEN CONTENT 20.7 Vol % (12.0-20.0); BLOOD GAS PCO2 37 mmHG (38-42); BLOOD GAS PO2 84 mmHG (61-120); BLOOD GAS TOTAL HGB 15.6 G/DL (12.0-16.0); TEMP CORR TO 98.6
[2017-01-31 10:47] LABS: CRITICAL VALUE NO; DRAW SITE RT RADIAL; FIO2 21 %; NUMBER OF ARTERIAL PUNCTURES 1; OXYGEN DEVICE ROOM AIR; STAT NO; ULNAR PULSE PRESENT
--- NOTE | 2017-02-11 08:40 | RSPPFT ---
DATE OF PROCEDURE: 01/31/17 COMMENTS: Spirometry with FVC 4.0, FEV1 of 3.0 and FEV1/FVC ratio at 76%. A non-significant response to acutely inhaled bronchodilator noted. Slow vital capacity is 79% of predicted. TLC is 87%. Diffusion capacity is mildly reduced however, normal when corrected for alveolar volume. Room air arterial blood gases show pH 7.45, PCO2 of 37, PO2 of 84. IMPRESSION: 1. No evidence of airways obstruction. 2. No evidence of airways restriction. 3. Mild reduction in diffusion capacity and normal when corrected for alveolar volume. 4. Adequate oxygenation and alveolar ventilation.
== END ==
LOC: PHRSP 10:25
PROVIDERS: ATTEND Internal Medicine Sleep Medicine
DX: R06.89 Other abnormalities of breathing (principal)
CPT/HCPCS: 36600; 82805; 94060; 94726; 94729

== ENCOUNTER → 2017-03-11 | Outpatient (CLI) | payer MEDICARE, OTHER ==
[2017-03-11 10:22] LABS: BLOOD, URINE NEG (NEG); COMMENT (UR) CULT NOT INDICATED; CULTURE IF INDICATED CULT NOT INDICATED; GLUCOSE,URINE NEG (NEG); KETONE, URINE TRACE mg/dL (NEG); MUCUS URINE FEW /lpf (OCC); NITRITE,URINE NEG (NEG); SQUAMOUS EPITHELIAL CELL URINE <1 /hpf (0-5); URINE COLOR YELLOW (YELLW/STRAW)
[2017-03-11 10:23] LABS: AUTOMATED NEUTROPHIL # 2.1 TH/MM3 (1.8-7.7); BASOPHIL % 0.4 % (0.0-2.0); EOSINOPHIL # 0.5 TH/MM3 (0-0.4); EOSINOPHIL % 11.6 % (0.0-4.0); HEMATOCRIT 43.7 % (39.0-51.0); HEMO FLAGS DIFF FINAL; LYMPH % 24.8 % (9.0-44.0); LYMPHOCYTE # 1.1 TH/MM3 (1.0-4.8); MEAN CORPUSCULAR HEMOGLOBIN 33.7 PG (27.0-34.0); MEAN CORPUSCULAR HGB CONC 34.1 % (32.0-36.0); MONO % 16.1 % (0.0-8.0); NEUT % 47.1 % (16.0-70.0); PLATELET COUNT 117 TH/MM3 (150-450); RED BLOOD COUNT 4.42 MIL/MM3 (4.50-5.90); RED CELL DISTRIBUTION WIDTH 15.9 % (11.6-17.2); WHITE BLOOD COUNT 4.4 TH/MM3 (4.0-11.0)
[2017-03-11 10:53] LABS: ANION GAP 6 MEQ/L (5-15); AST (GOT) 22 U/L (15-37); BICARBONATE 30.5 MEQ/L (21.0-32.0); BLOOD UREA NITROGEN 21 MG/DL (7-18); CHLORIDE 108 MEQ/L (98-107); GLOMERULAR FILTRATION RATE 55 ML/MIN (>89); GLUCOSE,FASTING 81 MG/DL (74-99); POTASSIUM 4.5 MEQ/L (3.5-5.1); SODIUM (NA) 144 MEQ/L (136-145)
[2017-03-11 10:56] LABS: ALKALINE PHOSPHATASE 85 U/L (45-117); ALT (GPT) 19 U/L (12-78); TOTAL BILIRUBIN ADULT 0.4 MG/DL (0.2-1.0)
--- NOTE | 2017-03-11 11:59 | EKG ---
Date Performed: 03/11/2017 Time Performed: 09:14:16 PTAGE: 66 years EKG: Sinus rhythm INCOMPLETE RIGHT BUNDLE BRANCH BLOCK INFERIOR T WAVE ABNORMALITY, CONSIDER ISCHEMIA NONSPECIFIC LATE RAL T WAVE ABNORMALITY ABNORMAL ECG NO PREVIOUS TRACING DOCTOR: Bradley Fong Interpretating Date/Time 03/11/2017 11:58:14
== END ==
LOC: CPRE 08:50
PROVIDERS: ATTEND Neurological Surgery
DX: Z01.810 Encounter for preprocedural cardiovascular examination (principal); Z01.812 Encounter for preprocedural laboratory examination; Z01.818 Encounter for other preprocedural examination; S22.000A Wedge compression fracture of unspecified thoracic vertebra, initial encounter for closed fracture; X58.XXXA Exposure to other specified factors, initial encounter; R94.31 Abnormal electrocardiogram [ECG] [EKG]
CPT/HCPCS: 36415; 80053; 81001; 85025; 85610; 85730; 93005

== ENCOUNTER 2017-03-12 06:21 | Observation (INO) | payer MEDICARE, OTHER ==
[~2017-03-12] VITALS: Ht 185.4 cm; Wt 102.0 kg
[~2017-03-12 06:21] MED LIST changes: -ASCO10003 PO; -CALC500C2 CHEW; -CEFT500T3 PO; -DIGECAP6 PO; -FLAX100015 PO; -FOLI5CAP PO; -HYDR-3583 PO; -LACTCAP8 PO; -PRED20 PO; -TRAZ100T4 PO; -WALKER WHEELS/F1 MIS; -ZITH250T PO; -[UNRECOGNIZED DRUG - CODE] PO
[2017-03-12] MEDS ORDERED: METOPROLOL TARTRATE 25 MG TAB PO PRN (06:45)
[2017-03-12] MEDS ORDERED: LACTATED RINGER'S 1000 ML IV PRN (06:45)
[2017-03-12] MEDS ORDERED: VANCOMYCIN 1,000 MG/NS 250 ML IV SCH ×2 (06:45)
[2017-03-12] MEDS ORDERED: SODIUM CHLORID 0.9% 500 ML IV PRN (06:45)
[2017-03-12] MEDS ORDERED: INSULIN HUMAN REGULAR 1,000 UNITS/10 ML VIAL SQ PRN (06:45)
[2017-03-12] MEDS ORDERED: POVIDONE IODINE 5% (ANTISEPSIS KIT) 4 APPLICATIONS EACH NARE PRN (06:45)
[2017-03-12] MEDS ORDERED: CHLORHEXIDINE GLUCONATE 2 % 1 PACK (2 CLOTHS) TOPICAL PRN (06:45)
[2017-03-12] MEDS ORDERED: [UNRECOGNIZED DRUG - CODE] PO (07:12)
[2017-03-12] MEDS ORDERED: CALC500C2 CHEW (07:12)
[2017-03-12] MEDS ORDERED: DIGECAP6 PO (07:12)
[2017-03-12] MEDS ORDERED: LACTCAP8 PO (07:12)
[2017-03-12] MEDS ORDERED: FLAX100015 PO (07:12)
[2017-03-12 07:13] VITALS: BP 128/72; PULSE 84; RESP 16; TEMP 98.1; O2SAT 97
[2017-03-12] MEDS ORDERED: PROPOFOL 200 MG/20 ML AMP IV ONE (10:26)
[2017-03-12] MEDS ORDERED: PHENYLEPH/NS 1000 MCG/10 ML SYR IV ONE (10:26)
[2017-03-12] MEDS ORDERED: LACTATED RINGER'S 1000 ML INJ 1,000 ML IV ONE (10:26)
[2017-03-12] MEDS ORDERED: ceFAZolin 2 GM PREMIX 50 ML ONE (10:26)
[2017-03-12] MEDS ORDERED: BUPIVACAINE/EPINEPHRINE 0.5% PF 30 ML VIAL ONE (10:26)
[2017-03-12] MEDS ORDERED: ONDANSETRON HCL 4 MG/2 ML VIAL IV PUSH ONE (10:26)
[2017-03-12] MEDS ORDERED: MIDAZOLAM HCL 2 MG/2 ML VIAL ONE (10:31)
[2017-03-12] MEDS ORDERED: fentaNYL CITRATE 250 MCG/5 ML AMP ONE (10:31)
[2017-03-12] MEDS ORDERED: ARTIFICIAL TEARS OPTH OINT 3.5 APPLIC/3.5 GM TUBO ONE (10:31)
[2017-03-12] MEDS ORDERED: SUGAMMADEX SODIUM 200 MG/2 ML VIAL IV PUSH ONE ×2 (10:32)
[2017-03-12] MEDS ORDERED: IOHEXOL 350 MG/ML 50 ML BTL (for RAD DIAG) ONE (11:59)
[2017-03-12] MEDS ORDERED: DO NOT ADM ANY ANTICOAGULANT DRUGS PRN (12:25)
[2017-03-12] MEDS ORDERED: ONDANSETRON HCL 4 MG/2 ML VIAL IV PRN (12:30)
[2017-03-12] MEDS ORDERED: ACETAMINOPHEN/HYDROcodone 325 MG/10 MG TAB PO PRN ×2 (12:30)
[2017-03-12] MEDS ORDERED: CYCLOBENZAPRINE HCL 10 MG TAB PO PRN (12:30)
[2017-03-12] MEDS ORDERED: cloNIDine HCL 0.1 MG TAB PO/NG PRN (12:30)
[2017-03-12] MEDS ORDERED: SODIUM CHLORIDE 0.9% FLUSH 5 ML FLUSH IVF PRN (12:30)
[2017-03-12] MEDS ORDERED: MENTHOL LOZENGE BUCCAL PRN (12:30)
[2017-03-12] MEDS ORDERED: ACETAMINOPHEN 325 MG TAB PO PRN (12:30)
[2017-03-12] MEDS ORDERED: MORPHINE SULFATE 4 MG/ML INJ IV PUSH PRN ×2 (12:30)
[2017-03-12] MEDS ORDERED: RESP: ALBUTEROL 2.5 MG/3 ML NEB (PRN) INH (12:30)
[2017-03-12] MEDS ORDERED: *morphine SULFATE 8 MG/ML PERIprocedure ONLY ONE (12:56)
[2017-03-12] MEDS: NS + KCL 20 MEQ INJ 1,000 ML IV SCH ×2 (13:00→22:30)
--- NOTE | 2017-03-12 13:47 | RADRPT ---
EXAM DATE/TIME: 03/12/2017 11:32 [facility] COMPARISON: No previous studies available for comparison. INDICATIONS : Post-op T-12 kyphoplasty. MEDICAL HISTORY : None. SURGICAL HISTORY : None. ENCOUNTER: Initial ACUITY: 1 day PAIN SCORE: Non-responsive. LOCATION: Thoractlumbar spine. FINDINGS: 2 intraoperative spot images of the thoracic spine. Moderate anterior wedge deformity of a lower thor acic level. Cement is seen within the vertebral body indicating kyphoplasty or vertebroplasty. CONCLUSION: Intraoperative spot images of compression fracture with cement seen in the vertebral body. Magdiel Appiah MD on March 12, 2017 at 13:44 Board Certified Radiologist. This report was verified electronically.
--- NOTE | 2017-03-12 18:21 | PD.OP ---
Operative Report Date of Surgery: March 12, 2017 Preoperative Diagnosis: T12 compression fracture Postoperative Diagnosis: T12 compression fracture Procedure: T12 kyphoplasty Anesthesia: general Surgeon: Mike Hinton [employer]door Adventure Instructor(s): VINCE Operation and Findings: INDICATIONS FOR THE PROCEDURE The patient is a 66 year-old male who presented with intractable pain related to a T12 compression fracture. He failed nonsurgical management and a kyphoplasty was indicated as the most appropriate form of treatment. The step-by -step details of the procedure, indications, alternatives, risks and potential complications were fully discussed with the patient. The patient fully understood. All The questions were answered. No guarantees were given. The patient voiced requesting the procedure and provided informed consents. The patient was offered the alternative of delaying the procedure and continuing with nonsurgical management. DETAILS OF THE SURGICAL PROCEDURE The patient was brought to the operating room and after the induction of general anesthesia, endotracheal intubation was performed. A Alvarez catheter and bilateral KEESHA hose and sequential compression devices were placed and kept throughout the procedure. The patient was positioned prone on the Daniel table over gel rods. All pressure points were carefully padded with egg crate mattress. The eyes were tapped shut after ointment was applied by the anesthesiologist to prevent corneal abrasion. A Jm hugger was placed over the exposed lower body to maintain control of the core body temperature. The lumbar region was prepped and draped in the usual sterile fashion. The C-arms were brought to the field and simultaneous AP and lateral x-rays were obtained. The levels were carefully counted and the pedicles were marked over the skin. An entry point to T12 was selected 1 centimeter superior and 1 centimeter lateral to the pedicle. Two small incisions were outlined on the skin and infiltrated with 1% lidocaine with epinephrine in 1:100,000 dilution. Initially, two small skin incisions were made with a #11 blade. Then, Jamshidi needles were carefully advanced to the entrance of the pedicle of T12, and then into the vertebral body under continuous fluoroscopic guidance. K-wires were placed inside the vertebral body of and the needles were carefully removed. A drill was used to create a trough into the vertebral body T12 to insert a cannula. Once the cannula was located through the pedicle, the drill was removed and bilateral balloons were inserted into the vertebral body for vertebral augmentation. A careful expansion of the balloon under continuous fluoroscopic guidance and manometric evaluation allowed expansion of the vertebral body. Then, the balloons were deflated and carefully removed and the voids created in the vertebral body were filled with bone cement under fluoroscopic visualization. A very good expansion of the vertebral bodies was achieved without evidence of extravasation or cement or other complications. The cannulas were then removed. The incisions were closed using a single stitch at each incision. Dermabond was applied to the skin. At the end of the procedure, the sponge, needle, instrument counts correct. The estimated blood loss as minimal. No intraoperative complications occurred. The patient received prophylactic antibiotics. The patient was then extubated and transferred to the recovery room in stable condition. Mike Hinton MD March 12, 2017 18:21
[2017-03-12] MEDS: ceFAZolin 2 GM PREMIX 50 ML IV SCH (19:45)
[2017-03-12 20:01] VITALS: O2SAT 95
[2017-03-12 20:40] VITALS: BP 102/54; PULSE 74; RESP 17; TEMP 97.4; O2SAT 93
[2017-03-12] MEDS: SODIUM CHLORIDE 0.9% FLUSH 5 ML FLUSH IVF SCH (21:00)
[2017-03-12] MEDS: DOCUSATE SODIUM 100 MG CAP PO SCH ×2 (21:00→21:36)
[2017-03-12] MEDS: PANTOPRAZOLE SOD 40 MG DELAYED RELEASE TAB PO SCH (21:36)
[2017-03-13 00:35] VITALS: BP 123/67; PULSE 77; RESP 17; TEMP 97.4; O2SAT 94
[2017-03-13] MEDS: ceFAZolin 2 GM PREMIX 50 ML IV SCH ×2 (03:34→11:38)
[2017-03-13 04:35] VITALS: BP 122/70; PULSE 73; RESP 17; TEMP 97; O2SAT 93
[2017-03-13 07:58] VITALS: BP 123/58; PULSE 68; RESP 18; TEMP 96.5; O2SAT 94
[2017-03-13] MEDS: NS + KCL 20 MEQ INJ 1,000 ML IV SCH (08:30)
[2017-03-13 08:54] VITALS: O2SAT 95
[2017-03-13] MEDS: SODIUM CHLORIDE 0.9% FLUSH 5 ML FLUSH IVF SCH (09:00)
[2017-03-13] MEDS ORDERED: HYDR-3583 PO (09:24)
[2017-03-13] MEDS: DOCUSATE SODIUM 100 MG CAP PO SCH (09:27)
[2017-03-13] MEDS: PANTOPRAZOLE SOD 40 MG DELAYED RELEASE TAB PO SCH (09:28)
--- NOTE | 2017-03-13 11:19 | HHI.DCPOC ---
Discharge Care Plan Diagnosis: (1) S/P kyphoplasty Goals to Promote Your Health * To prevent worsening of your condition and complications * To maintain your health at the optimal level Directions to Meet Your Goals Take your medications as prescribed Follow your dietary instruction Follow activity as directed Keep your appointments as scheduled Take your immunizations and boosters as scheduled If your symptoms worsen call your PCP, if no PCP go to Urgent Care Center or Emergency Room Smoking is Dangerous to Your Health. Avoid second hand smoke Call the 24-hour hour crisis hotline for domestic abuse at Michelle Cross Mar 13, 2017 11:19
--- NOTE | 2017-03-13 11:20 | HHI.DS ---
Discharge Summary Admission Date March 12, 2017 at 12:33 Discharge Date: Mar 13, 2017 Admitting Diagnosis s/p kyphoplasty (1) S/P kyphoplasty ICD Code: Z98.890 Brief History The patient is a 66 year-old male who presented with intractable pain related to a T12 compression fracture. He failed nonsurgical management and a kyphoplasty was indicated as the most appropriate form of treatment. The step-by -step details of the procedure, indications, alternatives, risks and potential complications were fully discussed with the patient. The patient fully understood. All The questions were answered. No guarantees were given. The patient voiced requesting the procedure and provided informed consents. The patient was offered the alternative of delaying the procedure and continuing with nonsurgical management. Imaging Last Impressions Thoracolumbar Spine 03/12/17 0000 Signed Impressions: Service Date/Time: Sunday, March 12, 2017 11:32 - CONCLUSION: Intraoperative spot images of compression fracture with cement seen in the vertebral body. Magdiel Appiah MD PE at Discharge Alert, oriented x 3. Speech fluent. Follows commands well. CN: pupils equal, facial motor symmetric Motor: moves all four extremities Resp: nonlabored Hospital Course Mr. Whaley underwent a T12 kyphoplasty March 12, 2017. His surgery went well without complications. Activity restrictions, wound care, and signs and symptoms to watch for were fully discussed with the patient. He will be discharged home in stable conditions. Pt Condition on Discharge: Stable Discharge Disposition: Discharge Home Discharge Instructions DIET: Follow Instructions for: Heart Healthy Diet ACTIVITIES You can perform: Weight Bearing As Rhonda ADDITIONAL Activity Instructio: Avoid strenuous activities, heavy lifting, overhead activities, repetitive bending, twisting, pushing, pulling or any activities which might result in stress over the spine. Avoid situtation that will put at risk for falls. Use assistive device as needed for walking. Wear lumbar brace when out of bed. New Medications: Hydrocodone-Acetaminophen (Hydrocodone-Acetaminophen) 10-325 mg Tab 1 TAB PO Q8HR PRN PAIN SCALE 1 TO 10 #62 Ref 0 TAB Continued Medications: Ascorbic Acid (Ascorbic Acid) 500 Mg Tab 1000 MG PO DAILY TAB Aspirin (Aspirin Children's) 81 Mg Chew 81 MG CHEW DAILY Ref 0 TAB Calcium Carbonate-Cholecalciferol (Calcium) 1,250-100 Mg-Unit Chew 1 TAB CHEW TAB Cyanocobalamin (Vitamin B-12) (B-12) 5,000 Mcg Tab.rapdis 1 TAB PO DAILY Cyclosporine Opth 0.05% (Restasis Opth 0.05%) 0.05% Emul 1 DROP EACH EYE BID Dry Eye #1 Ref 0 BOX Digestive Enzymes (Digestive Enzymes) 1 Cap Cap 1 TAB PO TID Divalproex DR (Divalproex DR) 500 Mg Tabdr 500 MG PO BID Control Seizures #60 Ref 0 TAB Flaxseed Oil ([place]-3 Flaxseed Oil) 1,000 Mg Capsule 1400 MG PO DAILY Gabapentin (Gabapentin) 600 Mg Tab 600 MG PO TID #90 Ref 0 TAB Lactobacillus Acidophilus (Probiotic) 1 Cap Cap 2 CAP PO DAILY Nutritional Supplement #180 Ref 0 CAP Lisinopril (Lisinopril) 5 Mg Tab 5 MG PO DAILY Blood Pressure Management #30 Ref 0 TAB Meloxicam (Meloxicam) 7.5 Mg Tab 7.5 MG PO DAILY Arthritis Pain Ref 0 TAB Simvastatin (Simvastatin) 80 Mg Tab 80 MG PO DAILY Cholesterol Management #30 Ref 0 TAB Trazodone (Trazodone) 50 Mg Tab 100 MG PO HS Control Depression #30 Ref 0 TAB Michelle Cross Mar 13, 2017 11:20
[2017-03-13] MEDS ORDERED: MAGNESIUM CITRATE SOLN 300 ML BTL PO ONE ×2 (11:30)
[2017-03-13 12:00] VITALS: BP 127/89; PULSE 79; RESP 18; TEMP 96.2; O2SAT 97
== END 2017-03-13 14:30 | disposition home or self-care (01) ==
LOC: HSDC 06:21 → HSDI 12:33 → N06A 18:53
PROVIDERS: ADMIT Neurological Surgery; ATTEND Neurological Surgery
DX: S22.089A Unspecified fracture of T11-T12 vertebra, initial encounter for closed fracture (principal); I10 Essential (primary) hypertension; E78.5 Hyperlipidemia, unspecified; E66.9 Obesity, unspecified; F31.9 Bipolar disorder, unspecified; M19.90 Unspecified osteoarthritis, unspecified site; E11.42 Type 2 diabetes mellitus with diabetic polyneuropathy; Z85.828 Personal history of other malignant neoplasm of skin; Z86.010 Personal history of colon polyps; Z88.7 Allergy status to serum and vaccine; Z88.8 Allergy status to other drugs, medicaments and biological substances; Z91.040 Latex allergy status; Z79.84 Long term (current) use of oral hypoglycemic drugs; W19.XXXA Unspecified fall, initial encounter
CPT/HCPCS: 01936; 22513; 72070; 88307; 88311; 94150; 96365; 96376; 97162; 97530; G0378; G8987; G8988; J0690; J2250; J2270; J2370; J2405; J3010; J3370; J3480; J7050; J7120; L0627; Q9967